=== PATIENT | female | born 1975 | race Caucasian/White ===

== ENCOUNTER 2018-11-13 01:19 | Emergency (ER) | payer BC ==
[~2018-11-13] VITALS: Ht 165.1 cm; Wt 83.9 kg
[~2018-11-13 01:19] MED LIST: DILAUDID4 MG PO; ULTRAM50 MG PO; ZOFRAN ODT4 MG SL
[2018-11-13] MEDS ORDERED: MAXALT MLT10 MG PO (01:29)
== END 2018-11-13 03:05 | disposition home or self-care (01) ==
LOC: ED 01:19
DX: G43.909 Migraine, unspecified, not intractable, without status migrainosus (principal); Z87.891 Personal history of nicotine dependence
CPT/HCPCS: 96361; 96374; 96375; 99283-25; J1200; J1885; J2765; J7030

== ENCOUNTER 2020-06-21 06:00 | Day surgery (SDC) | payer OTHER, BC ==
[~2020-06-21] VITALS: Ht 165.1 cm; Wt 88.2 kg
--- NOTE | ~2020-06-21 | OR ---
[facility] [address], [place] [address] Draft DATE OF OPERATION: 06/21/2020 SURGEON: Mariya Meza MD CAP SIZER: Tony Jordan M.D. PREOPERATIVE DIAGNOSES: 1. Symptomatic cystocele. 2. Stress incontinence. POSTOPERATIVE DIAGNOSES: 1. Symptomatic cystocele. 2. Stress incontinence. PROCEDURES: Cystocele repair, Obtryx sling procedure, cystoscopy. ANESTHESIA: Spinal with IV sedation. ESTIMATED BLOOD LOSS: 25 mL. DRAINS: Barnett catheter. PACKS: None. INDICATIONS AND FINDINGS: The patient is a 45-year-old female, 2, para 2, status post prior TVH for uterine prolapse, who has been having increasing issues with vaginal bulging and stress incontinence and now desires surgical correction. At the time of surgery, she had a grade 2 cystocele. She does have a grade 1 rectocele, though this has not been symptomatic. DESCRIPTION OF PROCEDURE: The patient was prepped and draped in the dorsal lithotomy position. A weighted speculum was placed in the posterior cul-de-sac. The bladder was drained with a Barnett PATIENT NAME: DANY CARBALLO OPERATIVE REPORT DATE OF : 73 REPORT #: [id number] PHYSICIAN: MARYIA MEZA MD PCP: ANA DUNLAP [facility] REPORT IS CONFIDENTIAL AND NOT TO BE RELEASED WITHOUT AUTHORIZATION [facility] [address], [place] [address] Draft catheter. The anterior wall of the vagina was incised in the midline from just below the urethral meatus to the vaginal cuff. The vaginal tissue was then with a combination of blunt and sharp dissection from the underlying tissue. This dissection was carried out laterally and superiorly to behind the pubic rami. There was an open sinus on the patient's left side on the bladder side of the dissection and this was repaired with suture of 2-0 chromic in a [id number] manner. Following this, the pubovesical fascia was reapproximated with interrupted sutures of 0-Vicryl in the midline. She did have fairly good tissue remaining, though it was widely . Following this, the cystocele appeared well reduced. The same procedure was then done. The obturator notch was identified and an incision made over the notch on each side with a knife. Trocars were then placed for the Obtryx sling. These were placed at the lowest most medial point of the obturator notch and brought through the fascia and immediately behind the pubic bone and these were brought through the upper aspect of the vaginal incision. This was done bilaterally. Following this, cystoscopy was done. The Barnett catheter was removed and a 70-degree scope was used. She did receive IV fluorescein. The bladder was evaluated. There was no evidence of any injury at all. There was no evidence of any trocar and intrusion. Both ureteral orifices were seen to have free egress of clear urine. There was no fluorescein seen at this point. Following this, the bladder was drained and the Barnett catheter replaced. The sling was then placed in the mid portion of the urethra. Appropriate tension was used. The cover was removed, maintaining the site separation from the mid urethra. The extra sling material was clipped at the skin edges. Following this, the vaginal mucosa was trimmed. The vaginal mucosa was then closed with a running suture of 2-0 Vicryl from the incision just below the urethral meatus to the vaginal cuff. The skin incisions were closed with interrupted sutures of 3-0 Vicryl Rapide. There was no evidence of any bleeding from the vaginal incision. She had tolerated the procedure very well and all sponge and needle counts were correct. The patient was then taken to the recovery room in good condition. Mariya Meza MD PJNitesh/MODL /[id number] cc: Tony Jordan MD PATIENT NAME: DANY CARBALLO OPERATIVE REPORT DATE OF : 73 REPORT #: [id number] PHYSICIAN: MARIYA MEZA MD PCP: ANA DUNLAP PAC REPORT IS CONFIDENTIAL AND NOT TO BE RELEASED WITHOUT AUTHORIZATION [address] [place], [place] [address] Draft Copies: TONY JORDAN MD ~ PATIENT NAME: DANY CARBALLO OPERATIVE REPORT DATE OF : 73 REPORT #: [id number] PHYSICIAN: MARIYA MEZA MD PCP: ANA DUNLAP REPORT IS CONFIDENTIAL AND NOT TO BE RELEASED WITHOUT AUTHORIZATION
[~2020-06-21 06:00] MED LIST changes: +MAXALT MLT10 MG PO; +UBRELVY50 MG
[2020-06-21] MEDS ORDERED: ALEVE220 MG PO (06:08)
--- NOTE | 2020-06-21 08:40 | NUR ---
06/21/20 0840 Jaycee Liang 0824-PATIENT ARRIVED TO PACU ON 6L MASK RR EVEN NONAROUSABLE. SR. IVF INFUSING. NO DRAINAGE TO MICKY AREA. HAQUE CATHETER DRAINING YELLOW URINE.
--- NOTE | 2020-06-21 09:21 | NUR ---
ICED WATER AND APPLESAUCE GIVEN. CALL LIGHT WITHIN REACH. PATIENT IS TAKING DRINKS OF WATER AND TOLERATING THAT WELL. SPOUSE IS AT THE BEDSIDE.
[2020-06-21] MEDS ORDERED: MOTRIN IB200 MG PO (09:45)
[2020-06-21] MEDS ORDERED: CEPHALEXIN500 M1 PO (09:46)
[2020-06-21] MEDS ORDERED: ONDANSETRON ODT8 MG PO (09:46)
--- NOTE | 2020-06-21 10:25 | NUR ---
SPINAL HAS RESOLVED. HAQUE BALLOON IS DEFLATED FOR 9 ML FLUID. 500 CLEAR, YELLOW URINE IS NOTED TO HAQUE OVERNIGHT BAG. HAQUE IS DC WNL AND PATIENT TOLERATES THAT WELL. SMALL AMOUNT OF BLOODY DRAINAGE IS NOTED TO PATIENT'S GOWN. MICKY CARE IS GENTLY PERFORMED, GOWN IS CHANGED, MICKY-PAD IS PLACED WITH STRETCH KNIT BRIEFS. PATIENT TOLERATES ALL OF THIS WELL. MORE ICED WATER GIVEN. CALL LIGHT REMAINS WITHIN REACH. APPLESAUCE EATEN. SPOUSE REMAINS AT THE BEDSIDE.
--- NOTE | 2020-06-21 10:58 | NUR ---
PATIENT PUSHES HER CALL LIGHT AND REPORTS "I NEED TO GO TO THE BATHROOM!" PATIENT AMBULATES TO THE BATHROOM AND VOIDS 250 ML OF BLOODY URINE. SHE IS BACK IN HER ROOM. SHE IS BLADDER SCANNED AND 68 ML OF URINE NOTED TO BE RESIDUAL IN THE BLADDER. MESSAGE RELAYED TO DR ESTRADA.
--- NOTE | 2020-06-21 11:06 | NUR ---
FOLLOWED UP WITH PT AND SPOUSE ANDERS POST OP. PT REPORT SHE IS DOING WELL, EATING SOME APPLESAUCE AND THANKED ME FOR CHECKING. GAVE BLESSING, WILL FOLLOW NEEDED
--- NOTE | 2020-06-21 11:25 | NUR ---
PATIENT IS UP TO THE BATHROOM, INDEPENDENTLY. SHE VOIDS 275 OF BLOODY URINE AND IS BLADDER SCANNED FOR 87 ML RESIDUAL. MESSAGE RELATED TO DR ESTRADA.
--- NOTE | 2020-06-21 11:43 | NUR ---
SHERIF 1130: DR ESTRADA IN TO SPEAK WITH PATIENT AND SHE OKAYS PATIENT'S DISCHARGE. DISCHARGE INSTRUCTIONS ARE GIVEN AND PATIENT AND SPOUSE VERBALIZE UNDERSTANDING. PATIENT IS GETTING DRESSED IN THE PRESENCE OF HER SPOUSE. SHE TRANSFERS HERSELF TO THE WHEELCHAIR AND THEN TO PERSONAL VEHICLE AND SHE TOLERATES THAT WELL.
== END 2020-06-21 11:35 | disposition home or self-care (01) ==
LOC: DS 06:00
PROVIDERS: ATTEND Obstetrics & Gynecology
PROC: 0JQC0ZZ Repair Pelvic Region Subcutaneous Tissue and Fascia, Open Approach (ICD-10-PCS; principal; 2020-06-21 06:45)
PROC: 0TSD4ZZ Reposition Urethra, Percutaneous Endoscopic Approach (ICD-10-PCS; 2020-06-21 06:45)
DX: N81.10 Cystocele, unspecified (principal); N39.3 Stress incontinence (female) (male); E66.9 Obesity, unspecified; G43.009 Migraine without aura, not intractable, without status migrainosus; E11.9 Type 2 diabetes mellitus without complications; E78.00 Pure hypercholesterolemia, unspecified; I10 Essential (primary) hypertension; Z68.32 Body mass index [BMI] 32.0-32.9, adult
CPT/HCPCS: J0131; J0690; J1100; J1644; J1885; J2001; J2250; J2405; J2704; J2765; J3010; J3475; J7121

== ENCOUNTER 2023-01-07 19:39 | Emergency (ER) | payer BC ==
[~2023-01-07] VITALS: Ht 165.1 cm; Wt 86.5 kg
[~2023-01-07 19:39] MED LIST changes: +ALEVE220 MG PO; +CEPHALEXIN500 M1 PO; +MOTRIN IB200 MG PO; +ONDANSETRON ODT8 MG PO
[2023-01-07] MEDS ORDERED: HYDROCHLOROTH12.5 MG PO (19:53)
[2023-01-07] MEDS ORDERED: NURTEC ODT75 MG PO (19:55)
[2023-01-07 20:48] VITALS: BP 140/89
== END 2023-01-07 20:48 | disposition home or self-care (01) ==
LOC: ED 19:39
DX: S61.412A Laceration without foreign body of left hand, initial encounter (principal); W26.0XXA Contact with knife, initial encounter; Z87.891 Personal history of nicotine dependence
CPT/HCPCS: 90715